=== PATIENT | male | born 1960 | race American Indian/Alaskan Native ===

== ENCOUNTER 2017-02-22 15:35 | Emergency (ER) | payer SELFPAY ==
[2017-02-22 17:19] LABS: Bilirubin,Urine NEG (Negative); Blood,Urine SM (Negative); Color,Urine Yellow (Yellow); Mucus,Urine FEW /HPF; Nitrite,Urine NEG (Negative)
[2017-02-22 17:35] LABS: Amphetamine Screen,Urine PRESUMPTIVE NEGATIVE; Benzodiazepines Screen,Urine PRESUMPTIVE NEGATIVE; Cannabinoid Screen,Urine PRESUMPTIVE NEGATIVE; Cocaine Screen,Urine PRESUMPTIVE NEGATIVE; Methadone Screen,Urine PRESUMPTIVE NEGATIVE; Opiate Screen,Urine PRESUMPTIVE NEGATIVE
[2017-02-22 17:52] LABS: Calcium 9.7 mg/dL (8.4-10.2)
[2017-02-22] MEDS ORDERED: NACL 0.9% 1000 ML 1,000 ML IV ONE ×3 (19:13→20:16)
[2017-02-22] MEDS ORDERED: NORVASC PO ONE (19:15)
[2017-02-22 19:20] LABS: Hematocrit 34.2 % (35.5-45.6); Hemoglobin 11.4 gm/dl (11.8-15.2); Mean Corpuscular HGB Conc 33 % (32-34); Mean Corpuscular Hemoglobin 30 pg (28-32); Mean Corpuscular Volume 89 fl (84-94); Platelet Count 276 K/mm3 (140-440); Red Blood Count 3.86 M/mm3 (3.65-5.03); Red Cell Distribution Width 14.1 % (13.2-15.2)
[2017-02-22] MEDS ORDERED: HCTZ PO ONE (20:14)
--- NOTE | 2017-02-22 20:17 | Emergency Department Report ---
ED Psych HPI - General Chief Complaint: Psych Stated Complaint: [id number] Time Seen by Provider: 02/22/17 17:13 Source: patient, police Mode of arrival: Ambulatory Limitations: No Limitations - History of Present Illness Initial Comments: 56-year-old male with a past medical history CVA, hypertension, and schizophrenia presents to the hospital with complaints of homicidal and suicidal thoughts. No plan reported. Patient is not compliant with his Risperdal, Norvasc, and other unknown blood pressure medication for 5 days. This complains a mild ankle edema but denies pain - Related Data Home Medications Medication Instructions Recorded Confirmed Last Taken Norvasc 02/22/17 02/18/17 Risperdal 02/22/17 02/18/17 Allergies Allergy/AdvReac Type Severity Reaction Status Date / Time No Known Allergies Allergy Unverified 02/22/17 16:32 ED Review of Systems ROS: Stated complaint: [id number] Other details as noted in HPI Comment: All other systems reviewed and negative Other: Constitutional: No fevers chills Eyes: No eye pain visual changes ENT: No ear pain or throat pain Neck: Denies pain Respiratory: Denies cough wheezing shortness of breath Cardiovascular: Denies chest pain, palpitations, syncope GI: Denies abdominal pain, nausea, vomiting, diarrhea : Denies dysuria Musculoskeletal: Denies back pain Skin: Denies rash, lesions, erythema Neurologic: Denies headache, numbness, weakness Psychiatric: As per HPI ED Past Medical Hx - Past Medical History Previous Medical History?: Yes Hx Hypertension: Yes Hx CVA: Yes Hx Psychiatric Treatment: Yes (schizophrfenia) - Surgical History Past Surgical History?: No - Medications Home Medications: Home Medications Medication Instructions Recorded Confirmed Last Taken Type Norvasc 02/22/17 02/18/17 History Risperdal 02/22/17 02/18/17 History ED Physical Exam - General Limitations: No Limitations - Other Other exam information: General: No limitations, patient is alert in no acute distress Head exam: Atraumatic, normocephalic Eyes exam: Normal appearance ENT: Moist mucous membrane, normal oropharynx Neck exam: Normal inspection, full range of motion, no meningismus nontender Respiratory exam: Clear to auscultation bilateral, no wheezes, rales, crackles Cardiovascular: Normal rate and rhythm, normal heart sounds Abdomen: Soft, nondistended, and nontender, with normal bowel sounds, no rebound, or guarding Extremity: Full range of motion, mild ankle edema Back: Normal Inspection, full range of motion, no tenderness Neurologic: Alert, oriented x3, cranial nerves intact, no motor or sensory deficit Psychiatric: normal affect, normal mood Skin: Warm, dry, intact ED Course Vital Signs 02/22/17 16:23 Temperature 98.6 F Pulse Rate 88 Respiratory 18 Rate Blood Pressure 144/85 Blood Pressure 144/85 [Left] - Reevaluation(s) Reevaluation #1: 02/22/17 20:16 Labs reveal elevated CK. IV fluids initiated - Consultations Consultation #1: 02/22/17 20:15 Mental health consult ED Medical Decision Making - Lab Data Result diagrams: 02/22/17 18:20 02/22/17 16:50 Lab Results 02/22/17 02/22/17 02/22/17 Range/Units 16:36 16:37 16:50 WBC (4.5-11.0) K/mm3 RBC (3.65-5.03) M/mm3 Hgb (11.8-15.2) gm/dl Hct (35.5-45.6) % MCV (84-94) fl MCH (28-32) pg MCHC (32-34) % RDW (13.2-15.2) % Plt Count (140-440) K/mm3 Lymph % (Auto) [place] % (Auto) Eos % (Auto) Baso % (Auto) Lymph # [place] # Eos # Baso # Seg Neutrophils % Seg Neutrophils # Sodium (137-145) mmol/L Potassium (3.6-5.0) mmol/L Chloride (98-107) mmol/L Carbon Dioxide (22-30) mmol/L Anion Gap mmol/L BUN (9-20) mg/dL Creatinine (0.8-1.5) mg/dL Estimated GFR ml/min BUN/Creatinine Ratio % Glucose (75-100) mg/dL Calcium (8.4-10.2) mg/dL Total Creatine Kinase (55-170) units/L Urine Color Yellow (Yellow) Urine Turbidity Clear (Clear) Urine pH 5.0 (5.0-7.0) Ur Specific [place] 1.026 (1.003-1.030) Urine Protein 30 mg/dl (Negative) mg/dL Urine Glucose (UA) Neg (Negative) mg/dL Urine Ketones 20 (Negative) mg/dL Urine Blood Sm (Negative) Urine Nitrite Neg (Negative) Urine Bilirubin Neg (Negative) Urine Urobilinogen 4.0 (<2.0) mg/dL Ur Leukocyte Esterase Neg (Negative) Urine WBC (Auto) 3.0 (0.0-6.0) /HPF Urine RBC (Auto) 2.0 (0.0-6.0) /HPF U Epithel Cells (Auto) < 1.0 (0-13.0) /HPF Urine Mucus Few /HPF Salicylates < 0.3 L (2.8-20.0) mg/dL Urine Opiates Screen Presumptive negative Urine Methadone Screen Presumptive negative Acetaminophen (10.0-30.0) ug/mL Ur Barbiturates Screen Presumptive negative Ur Phencyclidine Scrn Presumptive negative Ur Amphetamines Screen Presumptive negative U Benzodiazepines Scrn Presumptive negative Urine Cocaine Screen Presumptive negative U Marijuana (THC) Screen Presumptive negative Drugs of Abuse Note Disclamer Plasma/Serum Alcohol (0-0.07) gm% 02/22/17 02/22/17 02/22/17 Range/Units 16:50 16:50 16:50 WBC (4.5-11.0) K/mm3 RBC (3.65-5.03) M/mm3 Hgb (11.8-15.2) gm/dl Hct (35.5-45.6) % MCV (84-94) fl MCH (28-32) pg MCHC (32-34) % RDW (13.2-15.2) % Plt Count (140-440) K/mm3 Lymph % (Auto) [place] % (Auto) Eos % (Auto) Baso % (Auto) Lymph # [place] # Eos # Baso # Seg Neutrophils % Seg Neutrophils # Sodium 136 L (137-145) mmol/L Potassium 4.0 (3.6-5.0) mmol/L Chloride 95.6 L (98-107) mmol/L Carbon Dioxide 23 (22-30) mmol/L Anion Gap 21 mmol/L BUN 37 H (9-20) mg/dL Creatinine 1.5 (0.8-1.5) mg/dL Estimated GFR 59 ml/min BUN/Creatinine Ratio 25 % Glucose 90 (75-100) mg/dL Calcium 9.7 (8.4-10.2) mg/dL Total Creatine Kinase (55-170) units/L Urine Color (Yellow) Urine Turbidity (Clear) Urine pH (5.0-7.0) Ur Specific [place] (1.003-1.030) Urine Protein (Negative) mg/dL Urine Glucose (UA) (Negative) mg/dL Urine Ketones (Negative) mg/dL Urine Blood (Negative) Urine Nitrite (Negative) Urine Bilirubin (Negative) Urine Urobilinogen (<2.0) mg/dL Ur Leukocyte Esterase (Negative) Urine WBC (Auto) (0.0-6.0) /HPF Urine RBC (Auto) (0.0-6.0) /HPF U Epithel Cells (Auto) (0-13.0) /HPF Urine Mucus /HPF Salicylates (2.8-20.0) mg/dL Urine Opiates Screen Urine Methadone Screen Acetaminophen < 15.0 (10.0-30.0) ug/mL Ur Barbiturates Screen Ur Phencyclidine Scrn Ur Amphetamines Screen U Benzodiazepines Scrn Urine Cocaine Screen U Marijuana (THC) Screen Drugs of Abuse Note Plasma/Serum Alcohol < 0.01 (0-0.07) gm% 02/22/17 02/22/17 Range/Units 16:50 18:20 WBC 10.5 (4.5-11.0) K/mm3 RBC 3.86 (3.65-5.03) M/mm3 Hgb 11.4 L (11.8-15.2) gm/dl Hct 34.2 L (35.5-45.6) % MCV 89 (84-94) fl MCH 30 (28-32) pg MCHC 33 (32-34) % RDW 14.1 (13.2-15.2) % Plt Count 276 (140-440) K/mm3 Lymph % (Auto) Slp Teacher [place] % (Auto) Slp Teacher Eos % (Auto) Slp Teacher Baso % (Auto) Slp Teacher Lymph # Slp Teacher [place] # Slp Teacher Eos # Slp Teacher Baso # Slp Teacher Seg Neutrophils % Slp Teacher Seg Neutrophils # Slp Teacher Sodium (137-145) mmol/L Potassium (3.6-5.0) mmol/L Chloride (98-107) mmol/L Carbon Dioxide (22-30) mmol/L Anion Gap mmol/L BUN (9-20) mg/dL Creatinine (0.8-1.5) mg/dL Estimated GFR ml/min BUN/Creatinine Ratio % Glucose (75-100) mg/dL Calcium (8.4-10.2) mg/dL Total Creatine Kinase 1438 H (55-170) units/L Urine Color (Yellow) Urine Turbidity (Clear) Urine pH (5.0-7.0) Ur Specific [place] (1.003-1.030) Urine Protein (Negative) mg/dL Urine Glucose (UA) (Negative) mg/dL Urine Ketones (Negative) mg/dL Urine Blood (Negative) Urine Nitrite (Negative) Urine Bilirubin (Negative) Urine Urobilinogen (<2.0) mg/dL Ur Leukocyte Esterase (Negative) Urine WBC (Auto) (0.0-6.0) /HPF Urine RBC (Auto) (0.0-6.0) /HPF U Epithel Cells (Auto) (0-13.0) /HPF Urine Mucus /HPF Salicylates (2.8-20.0) mg/dL Urine Opiates Screen Urine Methadone Screen Acetaminophen (10.0-30.0) ug/mL Ur Barbiturates Screen Ur Phencyclidine Scrn Ur Amphetamines Screen U Benzodiazepines Scrn Urine Cocaine Screen U Marijuana (THC) Screen Drugs of Abuse Note Plasma/Serum Alcohol (0-0.07) gm% - Medical Decision Making Homicidal/suicidal ideation 1013 and transfer forms signed Mental health and psychiatric admission pending Elevated CK Mild dehydration as indicated by her elevated BUN 3 L and normal saline ordered repeat CK ordered for 2 AM to ensure downward trend. If level is increasing patient may require admission oncoming ED MD (GHAZAL) will be asked to f/u repeat value Hypertension Chronic Noncompliant with medications Norvasc 5 mg daily initiated 1 dose of Norvasc hydrochlorothiazide initiated for the ED - Differential Diagnosis medication noncompliance, schizophrenia, psychosis, HI, SI Critical Care Time: No Critical care attestation.: If time is entered above; I have spent that time in minutes in the direct care of this critically ill patient, excluding procedure time. ED Disposition Clinical Impression: Suicidal ideation, Homicide, HTN (hypertension), Noncompliance with medication regimen, Elevated CK, Medical clearance for psychiatric admission Disposition: [id number]/TX-65 PSY HOSP/PSY UNIT Is pt being admited?: No Condition: Stable Time of Disposition: 20:22 (awaiting acceptance)
[2017-02-23] MEDS: NORVASC PO SCH (11:03)
[2017-02-24 05:04] LABS: BUN/Creatinine Ratio 15; Blood Urea Nitrogen 15 mg/dL (9-20); Calcium 8.6 mg/dL (8.4-10.2); Hemolysis Index 3
[2017-02-24] MEDS: NORVASC PO SCH (11:07)
--- NOTE | 2017-02-24 15:13 | Consultation ---
History of Present Illness - Reason for Consult Consult date: 02/24/17 Reason for consult: Mental Health Evaluation Requesting physician: CHANTEL BOCANEGRA - Chief Complaint Chief complaint: "I just got out of intermediate" - History of Present Psychiatric Illness 56 y.o AA male presenting to [facility] for SI/HI's. Today the patient is calm and cooperative, but disorganized during the assessment. He could not confirm or deny being suicidal/homicidal when asked. He did state that he hear voices often since 2010. He could not elaborate about a life changing event that may have occurred in 2010. He stated that something was inside of his body (tangent) . His answers to question were not logical. This patient is a poor historian at this time. The patient stated that he was in "intermediate" recently. Medications and Allergies Allergies Allergy/AdvReac Type Severity Reaction Status Date / Time No Known Allergies Allergy Unverified 02/22/17 16:32 Home Medications Medication Instructions Recorded Confirmed Last Taken Type Norvasc 5 mg PO DAILY 02/22/17 02/22/17 02/18/17 History Risperdal 0.25 mg PO BID 02/22/17 02/22/17 02/18/17 History Active Meds: Active Medications Amlodipine Besylate (Norvasc) 5 mg PO DAILY [place] Last Admin: 02/24/17 11:07 Dose: 5 mg Past psychiatric history - Past Medical History Past Medical History: hypertension Past Surgical History: No surgical history - past Psychiatric treatment and history psychiatric treatment history: The patient cannot confirm or deny a psy hx. He cannot confirm of deny a fam psy hx. - Social History Social history: other (Homeless) Mental Status Exam - Vital signs Last Vital Signs Temp 98.9 F 02/24/17 10:00 Pulse 91 H 02/24/17 11:07 Resp 18 02/24/17 12:53 BP 159/87 02/24/17 11:07 Pulse Ox 98 02/24/17 12:53 - Exam Narrative exam: MSE: Appearance: calm, cooperative Behavior: regular eye contact Speech: hyper verbal Mood: "okay" Affect: blunted Thought Process: not logical Thought Content: denies SI/HI's and AVH's, disorganized, delusional Motor Activity: ambulatory Cognition: A/O x 3 Insight: poor Judgment: poor Results Result Diagrams: 02/22/17 18:20 02/24/17 03:59 Abnormal lab results 02/24/17 Range/Units 03:59 Glucose 102 H (75-100) mg/dL Total Creatine Kinase 577 H (55-170) units/L All other labs normal. Assessment and Plan Assessment and plan: Impression: Unspecified Mood DO with psy features. Today the patient is calm and cooperative, but disorganized during the assessment. The patient could not confirm or deny SI/HI's. UDS is negative. DDx: R/O Bipolar DO, R/O Schizoaffective DO, R/O Schizophrenia Recommendation/Plan: Continue 1013 with placement to inpatient psy services. Start Zyprexa 5 mg PO HS for mood/psychosis. Discussed possible metabolic side effects of Zyprexa with patient.
[2017-02-25] MEDS: NORVASC PO SCH (11:17)
--- NOTE | 2017-02-25 14:06 | Progress Note ---
Subjective - Reason for Consult Consult date: 02/25/17 Reason for consult: Psychiatry Follow-up - Chief Complaint Chief complaint: "Hello" 56 y.o AA male presenting to [facility] for SI/HI's. Today the patient is calm and cooperative, but still disorganized during the assessment. He about how he ended up at [facility], his answers were not logical. He did deny being suicidal/ homicidal when asked. No indications of side effects of his medication. Per the staff, no behavioral disturbance overnight. Mental Status Exam - Vital signs Last Vital Signs Temp 98.7 F 02/25/17 11:13 Pulse 74 02/25/17 11:17 Resp 18 02/25/17 11:13 BP 160/87 02/25/17 11:17 Pulse Ox 98 02/25/17 11:13 - Exam Narrative exam: MSE: Appearance: calm, cooperative Behavior: regular eye contact Speech: hyper verbal Mood: "okay" Affect: congruent to mood Thought Process: circumstantial Thought Content: denies SI/HI's and AVH's, disorganized Motor Activity: ambulatory Cognition: A/O x 3 Insight: poor Judgment: poor Assessment and Plan Impression: Unspecified Mood DO with psy features. Today the patient is calm and cooperative, but disorganized during the assessment. UDS is negative. DDx: R/O Bipolar DO, R/O Schizoaffective DO, R/O Schizophrenia Recommendation/Plan: Continue 1013 with placement to inpatient psy services. Continue Zyprexa 5 mg PO HS for mood/psychosis. Discussed possible metabolic side effects of Zyprexa with patient.
[2017-02-26] MEDS: NORVASC PO SCH (09:56)
[2017-02-26 21:10] VITALS: BP 161/95
== END 2017-02-26 20:50 ==
LOC: EEVIPCON 15:35 → ED 15:35
DX: F20.9 Schizophrenia, unspecified (principal); I10 Essential (primary) hypertension; R60.0 Localized edema; Z91.14 Patient's other noncompliance with medication regimen; Z86.73 Personal history of transient ischemic attack (TIA), and cerebral infarction without residual deficits; Z79.899 Other long term (current) drug therapy
CPT/HCPCS: 36415; 80048; 80307; 81001; 82550; 85025; 96360; 96361; 99285; G0480; J7030; 80320